=== PATIENT | female | born 1970 | race Caucasian/White ===

== ENCOUNTER 2016-06-20 17:29 | Inpatient (IN) ==
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
[2016-06-20 18:45] LABS: Acetaminophen < 1.0 mcg/mL (10-30); Ethanol < 10 mg/dL (0-10); Salicylate < 5.0 mg/dL (15-30)
[2016-06-20 19:05] LABS: Thyroid Stimulating Hormone 0.652 mcIU/mL (0.350-4.840)
[2016-06-20 19:48] LABS: Bilirubin,Urine Negative (Negative); Blood,Urine Large (Negative); Clarity,Urine Cloudy (Clear); Color,Urine Red (Yellow); Glucose,Urine (UA) Normal (Normal); Ketones,Urine Negative (Negative); Leukocyte Esterase,Urine Trace (Negative); Nitrite,Urine Negative (Negative); Protein,Urine 30 mg/dL (Neg-Trace); Specific Gravity,Urine 1.007 (1.010-1.025); Urobilinogen,Urine Normal (Normal)
[2016-06-20 19:50] LABS: Bacteria,Urine Few per hpf (None-Few); Hyaline Casts,Urine None Seen per lpf (None-Few); Squamous Epithelial Cell,Urine Many per lpf (None-Few)
[2016-06-20 19:55] LABS: Amphetamine Screen,Urine Negative ng/mL (Cutoff=1000); Barbiturate Screen,Urine Negative ng/mL (Cutoff=200); Benzodiazepines Screen,Urine Negative ng/mL (Cutoff=200); Cannabinoid Screen,Urine Negative ng/mL (Cutoff = 50); Cocaine Screen,Urine Negative ng/mL (Cutoff= 300); Opiate Screen,Urine Negative ng/mL (Cutoff=300); Phencyclidine Screen,Urine Negative ng/mL (Cutoff=25)
[2016-06-20] MEDS ORDERED: *HR* LORazepam 2 MG/ML VIAL IM PRN (21:58)
[2016-06-20] MEDS ORDERED: MOM Conc 10 ML UD.LIQ PO PRN (21:58)
[2016-06-20] MEDS ORDERED: Haloperidol Lactate 5 MG/ML VIAL IM PRN (21:58)
[2016-06-20] MEDS ORDERED: Acetaminophen 325 MG TABLET PO PRN (21:58)
[2016-06-20] MEDS ORDERED: hydrOXYzine pamoate 25 MG CAPSULE PO PRN (21:58)
[2016-06-20] MEDS ORDERED: *HR* LORazepam 1 MG TABLET PO PRN (21:58)
[2016-06-20] MEDS: traZODone 50 MG TABLET PO PRN (22:42)
[2016-06-21] MEDS: Mag Hydrox/Al Hydrox/Simeth 30 ML UDC PO PRN (09:40)
[2016-06-21] MEDS ORDERED: clonazePAM 1 MG TABLET PO PRN (10:44)
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
--- NOTE | 2016-06-21 14:04 | Electrocardiograph Report ---
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
[2016-06-21] MEDS: traZODone 50 MG TABLET PO PRN (22:56)
[2016-06-22] MEDS: Mag Hydrox/Al Hydrox/Simeth 30 ML UDC PO PRN (08:44)
--- NOTE | 2016-06-22 13:36 | Psychiatry Progress Note ---
Date of Encounter: 06/22/16 Time of Encounter: 13:00 Subjective Interval history: Patient is seen for follow-up. staff report that she is compliant with medication, continued to experience anxiety and using Klonopin as needed. She complain of heartburn and has a history of GERD and asking for medication to help. She met with the social services aide to work on discharge plans and follow-up including individual and joint counseling. Patient tell me her is agreeable to join her for therapy. She denies suicidal ideation she continued to complain of such anxiety. Review of Systems Psychiatric: Reports: depression, anxiety, suicidal ideation, panic attacks Objective: Exam Patient orientation: Yes Person, Yes Time, Yes Place Level of alertness: Alert Patient appearance: Appropriate, Well Groomed, Obese Behavior: calm, cooperative, anxious Psychomotor activity: Normal Eye contact: Maintains Eye Contact Mood description: Depressed, Anxious Affect description: congruent with mood, constricted, anxious Speech pattern: Normal rate, Normal rhythm, Normal tone Speech volume: Normal Thought process: Linear, Goal Oriented Thought content: Yes Suicidal ideation, No Homicidal ideation, No Overt delusions Perceptual disturbances: No Auditory hallucinations, No Visual hallucinations Judgment: Limited Insight: Partial Results - Vital Signs Vital Signs: Temp Pulse Resp BP Pulse Ox 97.6 F 80 16 114/83 99 06/22/16 09:00 06/22/16 09:00 06/22/16 09:00 06/22/16 09:00 06/20/16 18:07 Assessment and Plan (1) Depression, major, recurrent, moderate Current visit: Yes Status: Acute Plan: Continue hospitalization, Close observation, Suicide Precautions per unit protocol, Encourage participation in unit milieu, Group Therapy, Monitor sleep, Monitor appetite Additional Plan: We will order omeprazole 40 mg daily to treat acid reflux. Risks, benefits, side effects, alternatives discussed w/pt: Yes Patient agreeable to treatment: Yes (2) Panic disorder without agoraphobia with moderate panic attacks Current visit: Yes Status: Acute Plan: Continue hospitalization, Close observation, Suicide Precautions per unit protocol, Encourage participation in unit milieu, Group Therapy, Monitor sleep, Monitor appetite Risks, benefits, side effects, alternatives discussed w/pt: Yes Patient agreeable to treatment: Yes Consult Discharge Plan - Plan Referrals: [facility] Medicare Specialist Lizabeth [Outside]
[2016-06-22] MEDS: traZODone 50 MG TABLET PO PRN (21:27)
--- NOTE | 2016-06-23 15:22 | Psychiatry Progress Note ---
Date of Encounter: 06/23/16 Time of Encounter: 11:30 Subjective Interval history: Patient is here for follow-up. Staff report she is compliant with medication and attending groups and denies any suicidal ideation. She reports occasional anxiety and she is trying to deal with it without medication if she can by using relaxation techniques. Her discharge plans are ongoing including for individual and joint. She continued to feel depressed and anxious with some improvement. Review of Systems Psychiatric: Reports: depression, anxiety, suicidal ideation, panic attacks Objective: Exam Patient orientation: Yes Person, Yes Time, Yes Place Level of alertness: Alert Patient appearance: Appropriate, Well Groomed, Obese Behavior: calm, cooperative, anxious Psychomotor activity: Normal Eye contact: Maintains Eye Contact Mood description: Depressed, Anxious Affect description: congruent with mood, constricted, anxious Speech pattern: Normal rate, Normal rhythm, Normal tone Speech volume: Normal Thought process: Linear, Goal Oriented Thought content: No Suicidal ideation, No Homicidal ideation, No Overt delusions Perceptual disturbances: No Auditory hallucinations, No Visual hallucinations Judgment: Limited Insight: Partial Results - Vital Signs Vital Signs: Temp Pulse Resp BP Pulse Ox 97.6 F 84 18 131/86 99 06/23/16 09:00 06/23/16 09:00 06/23/16 09:00 06/23/16 09:00 06/20/16 18:07 Assessment and Plan (1) Depression, major, recurrent, moderate Current visit: Yes Status: Acute Plan: Continue hospitalization, Close observation, Suicide Precautions per unit protocol, Encourage participation in unit milieu, Group Therapy, Monitor sleep, Monitor appetite Risks, benefits, side effects, alternatives discussed w/pt: Yes Patient agreeable to treatment: Yes (2) Panic disorder without agoraphobia with moderate panic attacks Current visit: Yes Status: Acute Plan: Continue hospitalization, Close observation, Suicide Precautions per unit protocol, Encourage participation in unit milieu, Group Therapy, Monitor sleep, Monitor appetite Risks, benefits, side effects, alternatives discussed w/pt: Yes Patient agreeable to treatment: Yes Consult Discharge Plan - Plan Referrals: [facility] Madhav Barone [Outside] - 06/26/16 9:30 am (The above appointment is with Fabi Kruse for counseling. Please arrive 15 minutes early to complete paperwork. Please bring your insurance card, photo ID and medications in their original bottles. If you do not have insurance, bring proof of income to apply for the sliding fee scale. You will also see Marivel Paul on 06/29/2016 at 4:30pm in the same office to establish with a new primary care provider. You will also see Crsitela Mancia, psychiatric prescriber, on 09/04/2016 at 9:00am in the same office. If you are unable to keep any of these appointments, 24 hour business notice of cancellation is expected. )
[2016-06-23] MEDS: traZODone 50 MG TABLET PO PRN (21:22)
[2016-06-24 09:39] VITALS: BP 129/88
--- NOTE | 2016-06-24 10:39 | Discharge Summary ---
Date of Encounter: 06/24/16 Time of Encounter: 10:34 Diagnosis - Discharge Diagnosis (1) Depression, major, recurrent, moderate Priority: Primary Status: Acute (2) Panic disorder without agoraphobia with moderate panic attacks Priority: Secondary Status: Acute Medications - Discharge Medications Prescriptions: ClonazePAM [Klonopin] 1 mg PO BID PRN #30 tablet PRN Reason: Anxiety Omeprazole [PriLOSEC] 40 mg PO DAILY@0730 #60 capsule. Paroxetine [Paxil] 30 mg PO DAILY #30 tablet Dicyclomine [Bentyl] 10 mg PO QID 5 Days 06/20/16 [Rx] ClonazePAM [Klonopin] 1 mg PO BID PRN #30 tablet 06/24/16 [Rx] Omeprazole [PriLOSEC] 40 mg PO DAILY@0730 #60 capsule. 06/24/16 [Rx] Paroxetine [Paxil] 30 mg PO DAILY #30 tablet 06/24/16 [Rx] Allergies No Known Allergies Allergy (Verified 06/19/16 22:48) Provider Date of admission: 06/20/16 21:33 Primary care physician: PCP NO Consults: 06/22/16 12:11 Consult to Hospitalist [CONS] Routine Consulting Provider: Hospitalist Ashley Reason for Consult: R/O blood clot, abdominal pain Time Notified: 12:15 Call Completed: Yes Discharging clinician: Ryan Lakhani Assessment and Plan - Patient/Caregiver Discharge Instructions Activity: resume usual activities as tolerated Diet: regular diet - Follow up Plan Follow up with: Hayes Osborne [facility] [place] [Outside] - 06/26/16 9:30 am (The above appointment is with Fabi Kruse for counseling. Please arrive 15 minutes early to complete paperwork. Please bring your insurance card, photo ID and medications in their original bottles. If you do not have insurance, bring proof of income to apply for the sliding fee scale. You will also see Marivel Paul on 06/29/2016 at 4:30pm in the same office to establish with a new primary care provider. You will also see Cristela Mancia, psychiatric prescriber, on 09/04/2016 at 9:00am in the same office. If you are unable to keep any of these appointments, 24 hour business notice of cancellation is expected. ) Functional capacity at discharge: independent ambulation Overall status at discharge: Stable Disposition: Home, Self-Care Hospital Course Hospital course: Ms. Castrejon is a 45 year old female admitted from the emergency department for depression suicidal ideation and panic attacks. For details of the admission please see H&P On the units patient medication were adjusted, Paxil was increased to 30 mg daily and Klonopin was added as 1 mg twice a day as needed for anxiety. Patient responded to medication and denied any side effects, she reported improved sleep and energy level she was able to deal with her anxiety by taking medication and using relaxation techniques. Patient participated in group activities and interacted appropriately with peers and staff. Discharge plan was completed by the case management social worker and review with patient and her . Prior to discharge patient was medically stable, denies suicidal ideation, future oriented, she was less anxious and motivated to continue outpatient treatment. - Time Spent with Patient Total time spent providing and/or coordinating discharge services: Less than 30 minutes Quality - Multiple Antipsychotics Patient discharged on 2 or more antipsychotic medications: No Procedures - Procedures Procedures: Medication Management, Crisis Stabilization, Supportive Therapy, Group Therapy, Psychoeducational Therapy Mental Status Exam - Mental Status Exam Patient orientation: Yes Person, Yes Time, Yes Place Level of alertness: Alert Patient appearance: Appropriate, Well Groomed, Obese Behavior: calm, cooperative Psychomotor activity: Normal Eye contact: Maintains Eye Contact Mood description: Euthymic/stable Affect description: congruent with mood, full range Speech pattern: Normal rate, Normal rhythm, Normal tone Speech Volume: Normal Thought process: Linear, Goal Oriented Thought Content: No Suicidal ideation, No Homicidal ideation, No Overt delusions Perceptual Disturbances: No Auditory hallucinations, No Visual hallucinations Judgment: Limited Insight: Partial
== END 2016-06-24 12:00 | disposition home or self-care (01) | DRG 885 ==
LOC: EMEROO 17:29 → 1ANU 21:33
PROVIDERS: ADMIT Psychiatry & Neurology Psychiatry; ATTEND Psychiatry & Neurology Psychiatry